=== PATIENT | female | born 1955 | race African-American/Black ===

== ENCOUNTER 2016-06-16 13:25 | Emergency (ER) | payer BC, OTHER ==
[2016-06-16 13:46] VITALS: TEMP 98; BMI 38.2
--- NOTE | 2016-06-16 15:18 | PDOC ---
History of Present Illness - General History Source: Patient Exam Limitations: No Limitations - History of Present Illness Initial Comments: 06/16/16 19:04 The patient is a 60 year old female with significant past medical history of COPD and IBS who presents to the ED with headache migraine and intermittent tingling in the extremities for 3 days. Pt states she had a gradual onset of R sided pressure like headache that she has had in the past that she attributes to sinsitutis - no associated fever/chils, vision changes, neck pain. Pt also endorses intermittnet tingling in her L hand and foot for the past 3 days, but has since resolved. Patient has history of intermittent numbness in her arms and legs and was referred to a specialist by her PMD and was seen and evaluated but is unable to provide a name because she does not remember. PCP - Dr. Yary Wetzel <Nella Gil - Last Filed: 06/16/16 19:04> <Elias Sifuentes - Last Filed: 06/17/16 10:06> - General Chief Complaint: Weakness Stated Complaint: NUMBNESS HANDS/FEET Time Seen by Provider: 06/16/16 15:11 Past History <Nella Gil - Last Filed: 06/16/16 19:04> - Past Medical History COPD: Yes GI Disorders: Yes (IBS CONSTIPATION) Other medical history: SLEEP APNEA - Psycho/Social/Smoking Cessation Hx Suicidal Ideation: No Smoking History: Never smoked Information on smoking cessation initiated: No <Elias Sifuentes - Last Filed: 06/17/16 10:06> - Past Medical History Allergies/Adverse Reactions: Allergies Allergy/AdvReac Type Severity Reaction Status Date / Time No Known Allergies Allergy Verified 06/16/16 13:47 Home Medications: Ambulatory Orders Ipratropium [place] [Atrovent Hfa] 12.9 gm IH ASDIR PRN 06/16/16 Montelukast Na [Singulair -] 10 mg PO HS 06/16/16 Omeprazole 20 mg PO DAILY 06/16/16 Tiotropium [place] [Spiriva] 1 inh PO DAILY 06/16/16 Review of Systems - Review of Systems Able to Perform ROS?: Yes Comments:: 06/16/16 19:04 CONSTITUTIONAL: No reported: Fever, Chills, Diaphoresis, Generalized Weakness, Malaise, Loss of Appetite HEENT: No reported: Rhinorrhea, Nasal Congestion, Throat Pain, Throat Swelling, Difficulty Swallowing, Mouth Swelling, Ear Pain, Eye Pain, Visual Changes CARDIOVASCULAR: No reported: Chest Pain, Syncope, Palpitations, Irregular Heart Rate, Lightheadedness, Peripheral Edema RESPIRATORY: No reported: Cough, Shortness of Breath, SOB with Exertion, Orthopnea, Wheezing , Stridor, Hemoptysis GASTROINTESTINAL: No reported: Abdominal pain, Abdominal Distension, Nausea, Vomiting, Diarrhea, Constipation, Melena, Hematochezia GENITOURINARY: No reported: Dysuria, Frequency, Urgency, Hesitancy, Flank Pain, Genital Pain MUSCULOSKELETAL: No reported: Myalgia, Arthralgia, Joint Swelling, Back pain, Neck Pain SKIN: No reported: Rash, Itching, Pallor HEMATOLOGIC/IMMUNOLOGIC: No reported: Easy Bleeding, Easy Bruising, Lymphadenopathy, Frequent infections ENDOCRINE: No reported: Unexplained Weight Gain, Unexplained Weight Loss, Heat Intolerance , Cold Intolerance NEUROLOGIC: Reported: headache, tingling in extremities No reported: Focal Weakness, Paresthesias, Vertigo, Lightheadedness, Unsteady Gait, Seizure, Mental Status Changes, Incontinence PSYCHIATRIC: No reported: Anxiety, Depression <Nella Gil - Last Filed: 06/16/16 19:04> *Physical Exam - Vital Signs Last Vital Signs Temp Pulse Resp BP Pulse Ox 98 F 90 18 125/53 97 06/16/16 13:43 06/16/16 17:19 06/16/16 17:19 06/16/16 17:19 06/16/16 17:19 - Physical Exam Comments: 06/16/16 19:05 GENERAL: The patient is awake, alert, and fully oriented, Nontoxic - in no acute distress. HEAD: Normocephalic, atraumatic. EYES: extraocular movements intact, sclera anicteric, conjunctiva clear. ENT: Normal voice, Moist mucous membranes. NECK: Normal range of motion, No JVD LUNGS: Breath sounds equal, clear to auscultation bilaterally. No wheezes, no rhonchi, no rales. HEART: Regular rate and rhythm, normal S1 and S2 without murmur, rub or gallop. ABDOMEN: Soft, nontender, normoactive bowel sounds. No guarding, no rebound. No masses. No CVA tenderness EXTREMITIES: Mild +1 pitting edema in left leg and brace on right leg. Normal range of motion,. No clubbing or cyanosis. No cords, erythema, or tenderness. PSYCH: Normal mood, normal affect. SKIN: Warm, Dry, normal turgor. NEURO: Mental status: The patient is oriented x3. Cranial nerves: Cranial nerves II through XII are intact Motor: The upper extremities are 5 over 5 in all muscle groups. The lower extremities are 5 over 5 in all muscle groups. Negative pronator drift Sensation: Sensation is intact to light touch throughout. romberg negative Cerebellar: Eyevqu-aprmph-pypa is normal in both upper extremities. rapid alternating movements are normal. Reflexes: 2+ and symmetric in the upper and lower extremities. Gait: Normal for patient (due to brace) <Nella Gil - Last Filed: 06/16/16 19:04> - Vital Signs Last Vital Signs Temp Pulse Resp BP Pulse Ox 98 F 113 H 18 195/93 97 06/16/16 13:43 06/16/16 13:43 06/16/16 13:43 06/16/16 13:43 06/16/16 13:43 <Elias Sifuentes - Last Filed: 06/17/16 10:06> Heart Score/ECG Review - ECG Impressions Comment:: 06/16/16 17:11 Twelve-lead EKG was performed and reviewed by me. There is normal sinus rhythm with a normal rate. Rate of 96 LVH The intervals are normal. There is normal R wave progression There are no ST or T wave abnormalities. <Elias Sifuentes - Last Filed: 06/17/16 10:06> ED Treatment Course - LABORATORY CBC & Chemistry Diagram: 06/16/16 15:53 06/16/16 15:53 - ADDITIONAL ORDERS Additional order review: Laboratory Results 06/16/16 15:53 Sodium 141 Potassium 4.4 Chloride 105 Carbon Dioxide 29 Anion Gap 7 L BUN 9 Creatinine 0.8 Creat Clearance w eGFR > 60 Random Glucose 90 Calcium 9.5 Total Bilirubin 0.3 AST 21 ALT 25 Alkaline Phosphatase 66 Total Protein 7.2 Albumin 3.8 06/16/16 15:53 RBC 4.37 MCV 88.8 MCHC 33.0 RDW 14.8 MPV 9.6 Neutrophils % 58.5 Lymphocytes % 30.0 Monocytes % 9.0 Eosinophils % 1.6 Basophils % 0.9 - Medications Given in the ED: ED Medications Discontinued Medications Generic Name Dose Route Start Last Admin Trade Name Edward PRN Reason Stop Dose Admin Sodium Chloride 1,000 mls @ 1,000 mls/hr 06/16/16 15:40 06/16/16 15:53 Normal Saline - IV 06/16/16 16:39 1,000 mls/hr .Q1H ONE Administration Metoclopramide HCl 10 mg 06/16/16 15:40 06/16/16 15:53 Reglan Injection - IVPUSH 06/16/16 15:41 10 mg ONCE ONE Administration <Nella Gil - Last Filed: 06/16/16 19:04> - LABORATORY CBC & Chemistry Diagram: 06/16/16 15:53 06/16/16 15:53 <Elias Sifuentes - Last Filed: 06/17/16 10:06> Medical Decision Making - Medical Decision Making 06/16/16 17:06 60y F hx of copd presents with mild R sided pressure like headache similar to previous episodes that she attributes to sinus problems, pt also has problemw ith tinglin gin the L side which has intermittetn and chronic - no chagne form baseline. pts head ct negative, labs negative. tingling onset was 3 days ago and since resolved. suspect psosible sinus headache vs. migraine, pain improved with reglan pts CT negative - doubt cva based on chronic nature of it - but will refer to neurology for further evaluation. pts physical exam unremarkable will d/c to fu with pmd A portion of this note was documented by scribe services under my direction. I have reviewed the details of the note, within reason, and agree with the documentation with the following case summary and management plan written by me I discussed the physical exam findings, ancillary test results and final diagnoses with the patient. I answered all of the patient's questions. The patient was satisfied with the care received and felt comfortable with the discharge plan and treatment plan. The patient will call their primary care physician within 24 hours to arrange follow-up and will return to the Emergency Department with any new, persistent or worsening symptoms. <Elias Sifuentes - Last Filed: 06/17/16 10:06> *DC/Admit/Observation/Transfer - Attestations Scribe Attestion: 06/16/16 19:05 Documentation prepared by BERT Gayle, acting as biomedical engineering technologist for Elias Sifuentes MD. <Nella Gil - Last Filed: 06/16/16 19:04> - Discharge Dispostion Admit: No <Elias Sifuentes - Last Filed: 06/17/16 10:06> Diagnosis at time of Disposition: Tingling in extremities Migraine Qualifiers: Migraine type: other Status migrainosus presence: without status migrainosus Intractability: not intractable Qualified Code(s): G43.809 - Other migraine, not intractable, without status migrainosus - Discharge Dispostion Disposition: HOME Condition at time of disposition: Improved - Referrals Referrals: Yary Wetzel MD [Primary Care Provider] - - Patient Instructions Printed Discharge Instructions: DI for Numbness/tingling, DI for Migraine Additional Instructions: Return to the emergency department immediately with ANY new, persistent or worsening symptoms. Please follow-up with a neurologist for further evaluation of your intermittent tingling in your extremities. You MUST call and follow up with your doctor tomorrow for further evaluation of your symptoms. Results were discussed with you. Please make sure your doctor reviews the results of your emergency evaluation. Print Language: TONGAN
[2016-06-16] MEDS ORDERED: METOCLOPRAMIDE HCL INJECTION 10 MG/2 ML VIAL IVPUSH ONE (15:40)
[2016-06-16] MEDS ORDERED: SODIUM CHLORIDE 1,000 ML IV ONE (15:40)
[2016-06-16] MEDS ORDERED: METOCLOPRAMIDE HCL INJECTION 10 MG/2 ML VIAL ONE (15:43)
[2016-06-16 16:01] LABS: BASOPHIL 0.9 % (0-2.0); EOSINOPHIL 1.6 % (0-4.5); MCH 29.3 pg (25.7-33.7); MEAN CELL VOLUME 88.8 fl (80-96); MEAN PLT VOLUME 9.6 fl (7.5-11.1); NEUTROPHILS 58.5 % (42.8-82.8); PLATELET COUNT 202 K/MM3 (134-434); RDW 14.8 % (11.6-15.6); WHITE BLOOD COUNT 6.9 K/mm3 (4.0-10.0)
[2016-06-16 16:27] LABS: ALBUMIN 3.8 g/dl (3.4-5.0); ALK PHOS 66 U/L (45-117); ANION GAP 7 (8-16); BILIRUBIN,TOTAL 0.3 mg/dL (0.2-1.0); CALCIUM 9.5 mg/dL (8.5-10.1); CO2 29 mmol/L (21-32); CREATININE 0.8 mg/dL (0.55-1.02); GLUCOSE,RANDOM 90 mg/dL (74-106); SGOT/AST 21 U/L (15-37); SGPT/ALT 25 U/L (12-78); TOT PROT 7.2 g/dl (6.4-8.2)
[2016-06-16 17:20] VITALS: BP 125/53; PULSE 90
--- NOTE | 2016-06-21 23:30 | EKG ---
Test Reason : Blood Pressure : / mmHG Vent. Rate : 096 BPM Atrial Rate : 096 BPM P-R Int : 136 ms QRS Dur : 086 ms QT Int : 352 ms P-R-T Axes : 051 016 021 degrees QTc Int : 444 ms NORMAL SINUS RHYTHM POSSIBLE LEFT ATRIAL ENLARGEMENT LEFT VENTRICULAR HYPERTROPHY ABNORMAL ECG WHEN COMPARED WITH ECG OF 25-JUN-2008 14:19, NO SIGNIFICANT CHANGE WAS FOUND Confirmed by SUZE HUGHES, CINDY ([id number]) on 06/21/2016 11:30:26 PM Referred By: Confirmed By:CINDY ARCINIEGA MD
== END 2016-06-16 17:19 | disposition home or self-care (01) ==
LOC: JER 13:25
PROC: 3E033GC Introduction of Other Therapeutic Substance into Peripheral Vein, Percutaneous Approach (ICD-10-PCS; principal; 2016-06-16)
DX: G43.809 Other migraine, not intractable, without status migrainosus (principal)
CPT/HCPCS: 36415; 70450-TC; 80053; 85025; 93005; 93010; 93971-TC; 99283-25

== ENCOUNTER → 2017-02-02 | Day surgery (SDC) | payer BC, OTHER ==
[2017-01-30 16:11] VITALS: BMI 39.8
--- NOTE | 2017-02-01 11:52 | HP ---
[facility] - Chief Complaint Chief Complaint: Postmenopausal bleeding History of Present Illness: This patient has had 3 episodes of postmenopausal bleeding recently. 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 No: Asthma, Bronchitis, Cancer, O2 Dependent, Pneumonia, Previously Intubated, Pulmonary Embolus, Pulmonary Fibrosis, Sleep Apnea, Other Gastrointestinal: No: Ascites, Cancer, Constipation, Crohn's Disease, Diverticulitis, Diverticulosis, Esophageal Varices, Gastritis, GERD, GI Bleed, Hemorrhoids, Hiatal Hernia, Inflamatory Bowel Disease, Irritable Bowel Disease, Pancreatitis, Peptic Ulcer Disease, Ulcerative Colitis, Other Hepatobiliary: No: Cirrhosis, Cholelithiasis, Cholecystitis, Choledocholithiasis , Hepatitis A, Hepatitis B, Hepatitis C, Other Renal/: No: Renal Failure, Renal Inusuff, BPH, Cancer, Hematuria, Hemodialysis , Neurogenic Bladder, Renal Calculi, UTI, Other Reproductive: No: Ectopic , Endometriosis, Fibroids, PID, Polycystic Ovary Syndrome, Postmenopausal, Other ...: No ...: 2 ...Para: 1 Heme/Onc: No: Anemia, B12 Deficiency, Bleeding Disorder, Cancer, Current Chemotherapy, Current Radiation Therapy, Hemochromatosis, Hypercoaguable State, Myeloproliferative Synd, Sickle Cell Disease, Sickle Cell Trait, Thrombocytopenia, Other Infectious Disease: No: AIDS, C-Diff, Herpes Zoster, HIV, MRSA, STD's, Tuberculosis, VREF, Other Musculoskeletal: No: Bursitis, Chronic low back pain, Hemiparesis, Hemiplegia, Osteoarthritis, Paraplegia, Other Rheumatology: No: Fibromyalgia, Gout, Lupus, Rheumatoid Arthritis, Sarcoidosis, Vasculitis, Other ENT: No: Allergic Rhinitis, Sinusitis, Other Endocrine: No: Delvin's Disease, [place]'s Disease, Diabetes Insipidus, Diabetes Mellitus, Hyperparathyroidism, Hyperthyroidism, Hypothyroidism, Osteopenia, SIADH, Other Additional Medical History: Knee arthroscopy - Current Medications Current Medications: Home Medications Medication Instructions Recorded Ipratropium [place] [Atrovent Hfa] 12.9 gm IH ASDIR PRN 06/16/16 Omeprazole 20 mg PO DAILY 06/16/16 Tiotropium [place] [Spiriva] 1 inh PO DAILY 06/16/16 Olmesartan Medoxomil 20 mg PO DAILY 01/30/17 Satellite Physical Exam - Physical Examination General Appearance: Well Nourished, Well Developed, Alert & Oriented x3 ENT: Clear, No Discharge, No masses Lung: Clear to auscultation Heart: Regular rate & rhythm, Normal S1, Normal S2 Breasts: Soft, Non-Tender, No masses bilaterally Abdomen: Soft, No tenderness, No CVA Extremities: No edema, No tenderness/swelling Pelvic Exam: Within normal limits External Genitalia, Within normal limits Vagina, Within normal limits Cervix, Within normal limits Uterus, Within normal limits [facility]: Intact, Alert, Oriented Satellite Impression/Plan - Impression/Plan Impression: postmenopausal bleeding Operative Procedure: Hysteroscopy with D/C Date to be Performed: 02/02/17
[~2017-02-02] MED LIST: ACETAMINOPHEN 500 MG TABLET (FP) PO PRN; KETOROLAC TROMETHAMINE 30 MG/1 ML VIAL ONE; MIDAZOLAM HCL 2 MG/2 ML SINGLE DOSE VIAL ONE; ONDANSETRON 4 MG/2 ML VIAL IVPUSH PRN; ONDANSETRON 4 MG/2 ML VIAL ONE; PROPOFOL 20 ML ONE; oxyCODONE HCL 5 MG TABLET PO PRN
--- NOTE | 2017-02-02 08:58 | OP ---
DATE OF OPERATION: 02/02/2017 PREOPERATIVE DIAGNOSIS: Postmenopausal bleeding. POSTOPERATIVE DIAGNOSIS: Postmenopausal bleeding, as well as an endometrial polyp. OPERATIVE PROCEDURE: Hysteroscopy, polypectomy, dilatation and curettage, and endocervical curettage. . SURGEON: Albert Conde MD ANESTHESIA: Fractional. ANESTHESIOLOGIST: Cydney Vogt MD ESTIMATED BLOOD LOSS: Approximately 10 mL. DESCRIPTION OF PROCEDURE: This patient was brought to the operating room, placed in the supine position, given fractional anesthesia, placed in the lithotomy position, prepped and draped in the usual manner. She was examined. The uterus was noted to be anteverted. Adnexa negative. A speculum was placed into the vagina. The anterior lip of the cervix was grasped with a tenaculum. The uterus was sounded to 9 cm. The cervix was dilated with Johnson dilators. Hysteroscopy was performed. The patient was noted to have a large polyp emanating from the fundus of the uterus occupying the internal aspect of the uterus. The cervix was dilated with Johnson dilators, and a polypectomy was carried out using a medium-sized polyp forceps. This was followed by a dilatation and curettage, and an endometrial curettage was also carried out. Hemostasis was good. The patient tolerated the procedure well. The patient was then transferred to the recovery room in good condition with stable vital signs and good hemostasis. ALBERT CONDE M.D. KENNETH/[id number]
[2017-02-02 18:03] VITALS: BP 110/60; PULSE 64; TEMP 98
--- NOTE | 2017-02-03 12:32 | PATH ---
Surgical Pathology Report Patient Name: KARLI HESS [facility]. Rec. #: [id number] /Age/Gender: 1955 (Age: 61) / F Account: [id number] Location: [facility] SURGICAL Taken: 02/02/2017 Received: 02/02/2017 Reported: 02/03/2017 Physicians: Charles Conde M.D. Specimen(s) Received A: ENDOMETRIAL CURETTINGS AND POLYP B: ENDOCERVICAL CURETTINGS Clinical History Postmenopausal bleeding Final Diagnosis A. ENDOMETRIAL CURETTINGS AND POLYP: FRAGMENTS OF ENDOMETRIAL POLYP. SCANT BACKGROUND FRAGMENTS OF INACTIVE ENDOMETRIUM B. ENDOCERVIX, CURETTAGE: FRAGMENTS OF BENIGN ENDOCERVICAL TISSUE. SCANT FRAGMENTS OF BENIGN SQUAMOUS EPITHELIUM. Electronically Signed Miky Cespedes M.D. Gross Description A. Received in formalin labeled "endometrial curetting and polyp" is a 2.5 x 2.0 x 0.4 cm aggregate of cai, irregular to polypoid soft tissue fragments. The formalin is filtered and the specimen is entirely submitted in one cassette. B. Received in formalin labeled "endocervical curettings" is a 0.6 x 0.4 x 0.1 cm aggregate of cai -ink soft tissue fragments. The formalin is filtered and the specimen is entirely submitted in one cassette. 02/02/2017 [facility]02/02/2017
== END | disposition home or self-care (01) ==
LOC: JASU-SURG 06:08
PROVIDERS: ATTEND Obstetrics & Gynecology
PROC: 0UDB7ZX Extraction of Endometrium, Via Natural or Artificial Opening, Diagnostic (ICD-10-PCS; 2017-02-02)
PROC: 0UBC8ZX Excision of Cervix, Via Natural or Artificial Opening Endoscopic, Diagnostic (ICD-10-PCS; principal; 2017-02-02 07:30)
PROC: 0UB98ZX Excision of Uterus, Via Natural or Artificial Opening Endoscopic, Diagnostic (ICD-10-PCS; 2017-02-02 07:30)
DX: N95.0 Postmenopausal bleeding (principal); N84.0 Polyp of corpus uteri
CPT/HCPCS: 88305-TC; 94760

== ENCOUNTER → 2019-05-01 | Day surgery (SDC) | payer BC, OTHER ==
--- NOTE | 2019-05-03 18:00 | PATH ---
Cytology Non-Gynecological Report Patient Name: KARLI HESS [facility]. Rec. #: [id number] /Age/Gender: 1955 (Age: 63) / F Account: [id number] Location: RADIOLOGY INTER Taken: 05/01/2019 Received: 05/01/2019 Reported: 05/03/2019 Physicians: Rick Allen M.D. Specimen(s) Received THYROID, RIGHT, FINE NEEDLE ASPIRATION Clinical History Right, 1.59 x 1.6 x 1.32 cm Final Diagnosis THYROID, RIGHT, FINE NEEDLE ASPIRATION: SATISFACTORY FOR EVALUATION. BETHESDA CLASS II: BENIGN. CYTOLOGIC FINDINGS ARE CONSISTENT WITH A BENIGN FOLLICULAR NODULE. SMALL FOLLICULAR CELLS AND ABUNDANT COLLOID PRESENT. Electronically Signed Lydia Felix M.D. Gross Description Received are eight direct smears, four of which are air-dried and Diff-Quik stained, and four of which are alcohol fixed and Pap stained. Also received is 20 ml of bloody formalin from which one cellblock is prepared.
== END | disposition home or self-care (01) ==
LOC: JRADIR 09:23 → EDSTATUS 09:30
PROVIDERS: ATTEND Internal Medicine
PROC: 0G9H3ZX Drainage of Right Thyroid Gland Lobe, Percutaneous Approach, Diagnostic (ICD-10-PCS; principal; 2019-05-01)
DX: E04.1 Nontoxic single thyroid nodule (principal)
CPT/HCPCS: 76942; 88173; 88305-TC

== ENCOUNTER → 2019-12-11 | Day surgery (SDC) | payer OTHER ==
--- NOTE | 2019-12-13 18:16 | PATH ---
Cytology Non-Gynecological Report Patient Name: KARLI HESS [facility]. Rec. #: [id number] /Age/Gender: 1955 (Age: 63) / F Account: [id number] Location: RADIOLOGY INTER Taken: 12/11/2019 Received: 12/11/2019 Reported: 12/13/2019 Physicians: Braulio Hutchinson M.D. Specimen(s) Received LEFT THYROID FNA Clinical History Left, 1.39 x 0.80 x 0.75 cm Final Diagnosis THYROID, LEFT, FINE NEEDLE ASPIRATION: SATISFACTORY FOR EVALUATION. BETHESDA CLASS II: BENIGN. CYTOLOGIC FINDINGS ARE CONSISTENT WITH A BENIGN FOLLICULAR NODULE. FEW CLUSTERS OF SMALL FOLLICULAR CELLS, THIN COLLOID, AND FEW MACROPHAGES PRESENT. Electronically Signed Lydia Felix M.D. Gross Description Received are eight direct smears, four of which are air-dried and Diff-Quik stained, and four of which are alcohol fixed and Pap stained. Also received is 20 ml of bloody formalin from which one cellblock is prepared.
== END | disposition home or self-care (01) ==
LOC: JRADIR 10:14
PROVIDERS: ATTEND Internal Medicine
PROC: 0G9G3ZX Drainage of Left Thyroid Gland Lobe, Percutaneous Approach, Diagnostic (ICD-10-PCS; principal; 2019-12-11)
DX: E04.1 Nontoxic single thyroid nodule (principal)
CPT/HCPCS: 76942; 88173; 88305-TC

== ENCOUNTER 2020-04-21 13:14 | Emergency (ER) | payer OTHER | END 2020-04-21 13:53 | disposition home or self-care (01) | LOC: JVIRT 13:14 | DX: Z11.59 Encounter for screening for other viral diseases (principal) | CPT/HCPCS: C9803; Q3014-GT; U0003 ==

== ENCOUNTER 2020-08-08 10:54 | Emergency (ER) | payer OTHER ==
[2020-08-08 11:12] VITALS: BMI 43.7
[2020-08-08] MEDS ORDERED: BAMLANIVIMAB 700 MG in SODIUM CHLORIDE 250 ML IVPB ONE (11:56)
[2020-08-08] MEDS ORDERED: BAMLANIVIMAB 700 MG, ETESEVIMAB 1,400 MG in SODIUM CHLORIDE 250 ML IVPB ONE (12:21)
[2020-08-08 15:24] VITALS: BP 125/88; PULSE 85; TEMP 98.2
== END 2020-08-08 15:30 | disposition home or self-care (01) ==
LOC: JER 10:54
DX: U07.1 COVID-19 (principal)
CPT/HCPCS: 99284-25; M0239; Q0239; Q0245

== ENCOUNTER 2020-10-13 04:41 | Day surgery (SDC) | payer OTHER ==
[2020-10-12 12:38] VITALS: BMI 41.1
[2020-10-13] MEDS ORDERED: CEFAZOLIN 2 GM/D5W 2 GM/50 ML ML IVPB ONE (05:09)
[2020-10-13 06:32] LABS: INR 1.13 (0.83-1.09); PROTHROMBIN TIME (PATIENT) 13.9 SEC (9.7-13.0)
[2020-10-13] MEDS ORDERED: ceFAZolin SODIUM 1 GM VIAL ONE (06:52)
[2020-10-13] MEDS ORDERED: LIDOCAINE 1%/EPI 1:100000 (20 ML MULTI DOSE VIAL) IJ ONE (09:00)
[2020-10-13] MEDS ORDERED: BUPIVACAINE HCL/PF 0.5% (5 MG/ML) 30 ML VIAL IJ ONE (09:02)
[2020-10-13] MEDS ORDERED: ONDANSETRON 4 MG/2 ML VIAL IVPUSH PRN (09:18)
[2020-10-13] MEDS ORDERED: INDOCYANINE GREEN 25 MG/10 ML VIAL IVPUSH ONE (09:24)
[2020-10-13] MEDS ORDERED: LACTATED RINGERS SOLUTION 1,000 ML IV SCH (09:30)
[2020-10-13] MEDS ORDERED: ONDANSETRON 4 MG/2 ML VIAL IVPB PRN (10:54)
[2020-10-13] MEDS ORDERED: oxyCODONE HCL 5 MG TABLET PO PRN (10:54)
[2020-10-13] MEDS ORDERED: PATIENT'S OWN MEDICATION (NON-FORMULARY) (Ipratropium Bromide [Atrovent Hfa] 12.9 GM Hfa.A IH PRN (10:58)
[2020-10-13] MEDS ORDERED: ACETAMINOPHEN 1000 MG/100 ML VIAL (NON FORMULARY) IVPB ONE (11:08)
[2020-10-13] MEDS: ACETAMINOPHEN 1000 MG/100 ML VIAL (NON FORMULARY) IVPB SCH ×3 (11:44→22:06)
[2020-10-13] MEDS: KETOROLAC TROMETHAMINE 15 MG/ML VIAL IVPUSH SCH ×3 (11:45→22:07)
[2020-10-13] MEDS: DOCUSATE SODIUM 100 MG CAPSULE (FP) PO SCH ×2 (15:00→21:11)
[2020-10-13] MEDS: ceFAZolin 2 GRAM PREMIX BAG IVPB SCH (17:56)
[2020-10-13] MEDS: CARVEDILOL 12.5 MG TABLET (FP) PO SCH (21:11)
[2020-10-13] MEDS ORDERED: MONTELUKAST NA 10 MG TABLET PO SCH (22:00)
[2020-10-13] MEDS ORDERED: LORATADINE 10 MG TABLET PO SCH (22:00)
[2020-10-13] MEDS ORDERED: TIOTROPIUM BROMIDE 2.5 MCG (SPIRIVA) RESPIMAT INHALER IH SCH (22:00)
[2020-10-14] MEDS: ceFAZolin 2 GRAM PREMIX BAG IVPB SCH ×2 (02:22→09:09)
[2020-10-14] MEDS: KETOROLAC TROMETHAMINE 15 MG/ML VIAL IVPUSH SCH ×2 (06:23→12:17)
[2020-10-14] MEDS: ACETAMINOPHEN 1000 MG/100 ML VIAL (NON FORMULARY) IVPB SCH (06:35)
[2020-10-14] MEDS: DOCUSATE SODIUM 100 MG CAPSULE (FP) PO SCH ×2 (06:36→16:13)
[2020-10-14] MEDS ORDERED: metFORMIN HCL 500 MG TABLET (FP) PO SCH (07:00)
[2020-10-14] MEDS: oxyCODONE HCL 5 MG TABLET PO PRN ×2 (08:49→16:17)
[2020-10-14] MEDS: CARVEDILOL 12.5 MG TABLET (FP) PO SCH (09:31)
[2020-10-14 09:46] LABS: HEMATOCRIT 30.7 % (32.4-45.2); HEMOGLOBIN 10.2 GM/dL (10.7-15.3); MCHC 33.4 g/dl (32.0-36.0); MEAN CELL VOLUME 92.9 fl (80-96); PLATELET COUNT 192 K/MM3 (134-434); RBC 3.31 M/mm3 (3.60-5.2); RDW 14.5 % (11.6-15.6); WHITE BLOOD COUNT 8.9 K/mm3 (4.0-10.0)
[2020-10-14 09:57] LABS: CALCIUM 8.1 mg/dL (8.5-10.1)
[2020-10-14 09:58] LABS: BLOOD UREA NITROGEN 10.4 mg/dL (7-18)
[2020-10-14] MEDS ORDERED: FUROSEMIDE 40 MG TABLET (FP) PO SCH (10:00)
[2020-10-14] MEDS ORDERED: ENOXAPARIN NA (PORCINE) 40 MG/0.4 ML DISP.SYRIN SQ SCH (10:00)
[2020-10-14] MEDS ORDERED: LOSARTAN POTASSIUM 50 MG TABLET PO SCH (10:00)
[2020-10-14] MEDS ORDERED: PANTOPRAZOLE 20 MG TABLET PO SCH (10:00)
[2020-10-14 10:01] LABS: CREATININE 0.7 mg/dL (0.55-1.3)
[2020-10-14 13:35] VITALS: BP 99/66; PULSE 83; TEMP 98
== END 2020-10-14 18:00 | disposition home or self-care (01) ==
LOC: JASU-SURG 04:41 → JASUSAT 04:41 → J3W 13:54 → JASUSAT 10-14 18:00
PROVIDERS: ATTEND Obstetrics & Gynecology Gynecologic Oncology
PROC: 07TC4ZZ Resection of Pelvis Lymphatic, Percutaneous Endoscopic Approach (ICD-10-PCS; 2020-10-13)
PROC: 0UT94ZZ Resection of Uterus, Percutaneous Endoscopic Approach (ICD-10-PCS; principal; 2020-10-13 08:00)
PROC: 0UT24ZZ Resection of Bilateral Ovaries, Percutaneous Endoscopic Approach (ICD-10-PCS; 2020-10-13 08:00)
PROC: 0UT74ZZ Resection of Bilateral Fallopian Tubes, Percutaneous Endoscopic Approach (ICD-10-PCS; 2020-10-13 08:00)
DX: N85.02 Endometrial intraepithelial neoplasia [EIN] (principal); D25.9 Leiomyoma of uterus, unspecified; D26.9 Other benign neoplasm of uterus, unspecified; N72 Inflammatory disease of cervix uteri; N83.202 Unspecified ovarian cyst, left side; N83.201 Unspecified ovarian cyst, right side; N83.8 Other noninflammatory disorders of ovary, fallopian tube and broad ligament
CPT/HCPCS: 36415; 80048; 82962; 85027; 85610; 86850; 86900; 86901; 88108; 88305-TC; 88307-TC; 94660; 94760; J0131